=== PATIENT | male | born 1995 | race Caucasian/White ===

== ENCOUNTER 2025-01-05 06:21 | Day surgery (SDC) | payer BC ==
[2025-01-05] MEDS ORDERED: SCOPOLAMINE 1 MG/72 HR PATCH TRANSDERM ONE (06:39)
[2025-01-05] MEDS: IV FLUID CONTINUATION 1,000 ML IV ONE (06:47)
[2025-01-05] MEDS: ONDANSETRON 4 MG/2 ML VIAL IVP ONE (06:59)
[2025-01-05] MEDS: LACTATED RINGERS 1,000 ML IV SCH (06:59)
[2025-01-05] MEDS: DEXAMETHASONE SOD PHOSPHATE 4 MG/ML 1 ML VIAL IV ONE (06:59)
[2025-01-05] MEDS: ACETAMINOPHEN TAB 500 MG TAB PO PRN (06:59)
[2025-01-05] MEDS: HEPARIN SODIUM,PORCINE 5,000 UNIT/ML 1 ML VIAL SQ PRN (07:00)
[2025-01-05] MEDS ORDERED: HYDROmorphone 0.5 MG/0.5 ML SYRINGE IVP PRN (07:00)
[2025-01-05] MEDS ORDERED: MIDAZOLAM 2 MG/2 ML VIAL IV PRN (07:00)
[2025-01-05] MEDS: FAMOTIDINE 20 MG/2 ML VIAL IV STA (07:02)
[2025-01-05] MEDS ORDERED: SUCCINYLCHOLINE CHLORIDE 200 MG/10 ML VIAL IV ONE (07:30)
[2025-01-05] MEDS ORDERED: PROPOFOL 10 MG/ML 20 ML VIAL IV ONE (07:30)
[2025-01-05] MEDS ORDERED: LIDOCAINE 1% INJ 10MG/ML (20 ML MDV) ONE (07:30)
[2025-01-05] MEDS ORDERED: fentaNYL (PF) 50 MCG/ML 2 ML AMP ONE (07:30)
[2025-01-05] MEDS ORDERED: MIDAZOLAM 2 MG/2 ML VIAL ONE (07:30)
[2025-01-05] MEDS: ceFAZolin 2 GM in DEXTROSE 5% IN WATER 50 ML IVPB PRN (07:35)
[2025-01-05] MEDS: metroNIDAZOLE-NS PMX 500 MG in SALINE 1 100ML.BAG IVPB PRN (07:48)
[2025-01-05] MEDS: BUPIVACAINE (PF) 0.25% 10 ML VIAL SQ ONE (08:07)
--- NOTE | 2025-01-05 08:22 | P.OP ---
Date of Procedure: 01/05/25 Preoperative Diagnosis: Pilonidal cyst Postoperative Diagnosis: Pilonidal cyst Procedure(s) Performed: Excision of pilonidal cyst Anesthesia: JULIAN Surgeon: Fredy Lopez Estimated Blood Loss (ml): 5 Pathology: other (Pilonidal cyst) Condition: stable Disposition: PACU Description of Procedure: The patient was sandip placed on the operative table in the prone jackknife position after receiving general anesthesia. The area of the pilonidal cyst was prepped and draped you sterile fashion. Elliptical skin incision was made around the pilonidal cyst and use electrocautery the pilonidal cyst was dissected free and sent to pathology. The wound appeared Renocis. There is no bleeding seen. The wound was packed with wet-to-dry Kerlix. Patient tolerated the procedure well. He was sent to recovery in stable position.
[2025-01-05 08:47] VITALS: TEMP 97.3
[2025-01-05 09:26] VITALS: PULSE 52; RESP 14
[2025-01-05 09:27] VITALS: BP 146/99
== END 2025-01-05 09:55 | disposition home health service (06) ==
LOC: OR 06:21
PROVIDERS: ATTEND Surgery
DX: L05.91 Pilonidal cyst without abscess (principal); Z79.899 Other long term (current) drug therapy; Z88.1 Allergy status to other antibiotic agents
CPT/HCPCS: 11770; 88304; J2250; J0330; J1644; J1100; J0690; J2405; J2003; J3010; J2704; J1836; J0665; J1308